=== PATIENT | female | born 1995 | race Two or more races ===

== ENCOUNTER 2018-04-07 17:47 | Emergency (ER) | payer MEDICAID ==
[~2018-04-07] VITALS: Ht 172.7 cm; Wt 102.0 kg
[~2018-04-07 17:47] MED LIST: DOCU-131 PO; FERR325T18 PO; IBUP-1222 PO; OXYC-302 PO
[2018-04-07 18:08] VITALS: BP 125/58
== END 2018-04-07 19:17 | disposition home or self-care (01) ==
LOC: ED 19:10
DX: O90.2 Hematoma of obstetric wound (principal); B37.2 Candidiasis of skin and nail
CPT/HCPCS: 99283